=== PATIENT | male | born 1970 | race African-American/Black ===

== ENCOUNTER 2018-06-03 14:05 | Emergency (ER) | payer MEDICAID ==
[~2018-06-03] VITALS: Ht 188 cm; Wt 121.0 kg
[2018-06-03] MEDS ORDERED: KETOROLAC 15MG/ML VIAL IM ONE (20:15)
[2018-06-03 21:34] VITALS: BP 152/94
== END 2018-06-03 21:38 | disposition home or self-care (01) ==
LOC: ER 14:05
DX: S62.394A Other fracture of fourth metacarpal bone, right hand, initial encounter for closed fracture (principal); W22.8XXA Striking against or struck by other objects, initial encounter; Y93.89 Activity, other specified; Y92.89 Other specified places as the place of occurrence of the external cause; Y99.8 Other external cause status; Z98.890 Other specified postprocedural states
CPT/HCPCS: 29125; 73130; 96372; 99284; J1885